=== PATIENT | female | born 1955 | race Caucasian/White ===

== ENCOUNTER 2023-06-17 12:44 | Emergency (ER) | payer MEDICARE, OTHER ==
[~2023-06-17] VITALS: Ht 160 cm; Wt 56.7 kg
[2023-06-17] MEDS ORDERED: ROSU5TAB PO (12:55)
[2023-06-17 15:53] LABS: BASOPHILS % (AUTO) 1.2 % (0.0-2.0); DIFFERENTIAL COMMENT 1; HEMATOCRIT 42.8 % (31.2-41.9); HEMOGLOBIN 14.2 g/dL (10.9-14.3); LYMPHOCYTES # (AUTO) 0.7 K/uL (0.8-4.8); MEAN CORPUSCULAR HEMOGLOBIN 29.6 uug (24.7-32.8); MEAN CORPUSCULAR HGB CONC 33 g/dL (32.3-35.6); MEAN CORPUSCULAR VOLUME 89.1 fL (75.5-95.3); MONOCYTES # (AUTO) 0.5 K/uL (0.1-1.30); NEUTROPHILS # (AUTO) 1.9 K/uL (1.8-8.9); NEUTROPHILS % (AUTO) 60.8 % (38.5-71.5); PLATELET COUNT (AUTO) 135 K/uL (179-408); RED BLOOD CELL COUNT(AUTO) 4.81 MIL/uL (3.63-4.92); WHITE BLOOD COUNT (AUTO) 3.2 K/uL (3.8-11.8)
[2023-06-17 16:06] LABS: CARBON DIOXIDE 23 mmol/L (21-32); CHLORIDE 100 mmol/L (98-107); CREATININE 1.2 mg/dL (0.6-1.3); GLUCOSE 82 mg/dL (74-106); POTASSIUM 4.1 mmol/L (3.5-5.1); SODIUM SERUM 136 mmol/L (136-145); UREA NITROGEN, BLOOD 27 mg/dL (7-18)
[2023-06-17 16:20] LABS: ALANINE AMINOTRANSFERASE 20 U/L (14-59); ALBUMIN 3.2 g/dL (3.4-5.0); ALKALINE PHOSPHATASE 46 U/L (50-136); ASPARTATE AMINOTRANSFERASE 18 U/L (15-37); BILIRUBIN,DIRECT 0.1 mg/dL (0.0-0.2); BILIRUBIN,TOTAL 0.3 mg/dL (0.2-1.0); LIPASE 49 U/L (16-77); TOTAL PROTEIN, SERUM 6.3 g/dL (6.4-8.2)
[2023-06-17] MEDS: IV NORMAL SALINE 1000 ML BAG IV ONE (16:30)
[2023-06-17] MEDS ORDERED: ACETAMINOPHEN 325 MG SUPP ONE (16:45)
[2023-06-17] MEDS ORDERED: ACETAMINOPHEN 160 MG/5 ML UDC PO ONE (16:48)
[2023-06-17] MEDS: ACETAMINOPHEN 650 MG/20.3 ML LIQUID UDC PO ONE (16:55)
[2023-06-17] MEDS ORDERED: ACET-2605 PO (17:37)
[2023-06-17] MEDS ORDERED: ONDA4TAB5 PO (17:40)
[2023-06-17 17:50] VITALS: BP 121/77; O2SAT 96
== END 2023-06-17 17:51 | disposition home or self-care (01) ==
LOC: ER 12:44
DX: R53.1 Weakness (principal); E78.00 Pure hypercholesterolemia, unspecified; Z79.899 Other long term (current) drug therapy
CPT/HCPCS: 99284; 96360; 71045; 80076; 80048; 83690; 85025; 84484; 36415; J7040; A4606; A4663